=== PATIENT | male | born 1990 | race Caucasian/White ===

== ENCOUNTER 2016-08-01 17:22 | Outpatient (CLI) | payer MEDICAID | END 2016-08-01 17:23 | disposition home or self-care (01) | DX: S93.401A Sprain of unspecified ligament of right ankle, initial encounter (principal); X58.XXXA Exposure to other specified factors, initial encounter ==

== ENCOUNTER 2016-08-01 18:41 | Emergency (ER) | payer OTHER, MEDICAID ==
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
[2016-08-01 18:45] VITALS: BP 151/76
--- NOTE | 2016-08-01 19:16 | XRAY Preliminary Report ---
Exam: XR Ankle 3 View RT IMPRESSION: 2 x 6 mm flake fracture tip of the lateral malleolus. [facility] SITE ID: [id number]
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
== END 2016-08-01 20:07 | disposition home or self-care (01) ==
LOC: ED 18:41
DX: S82.64XA Nondisplaced fracture of lateral malleolus of right fibula, initial encounter for closed fracture (principal); X50.1XXA Overexertion from prolonged static or awkward postures, initial encounter; Y93.89 Activity, other specified; Y92.89 Other specified places as the place of occurrence of the external cause; Y99.0 Civilian activity done for income or pay; R03.0 Elevated blood-pressure reading, without diagnosis of hypertension; Z87.891 Personal history of nicotine dependence
CPT/HCPCS: 1040M; 29515; 73610; 99283

== ENCOUNTER 2016-12-14 00:51 | Emergency (ER) | payer MEDICAID, OTHER ==
[2016-12-14 01:24] VITALS: BP 143/92
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
== END 2016-12-14 03:43 | disposition home or self-care (01) ==
LOC: ED 00:51
DX: Z77.21 Contact with and (suspected) exposure to potentially hazardous body fluids (principal); Z87.891 Personal history of nicotine dependence
CPT/HCPCS: 1040M; 36415; 86317; 86803; 87389; 99282; 99283